=== PATIENT | female | born 1965 | race Caucasian/White ===

== ENCOUNTER 2018-10-25 09:36 | Emergency (ER) | payer MEDICAID ==
[~2018-10-25] VITALS: Ht 162.6 cm; Wt 98.0 kg
[2018-10-25] MEDS ORDERED: KETOROLAC 60MG/2ML VIAL IM ONE (11:30)
[2018-10-25 14:05] VITALS: BP 145/82
== END 2018-10-25 14:10 | disposition home or self-care (01) ==
LOC: ER 09:49
DX: S82.832A Other fracture of upper and lower end of left fibula, initial encounter for closed fracture (principal); M25.572 Pain in left ankle and joints of left foot; W01.198A Fall on same level from slipping, tripping and stumbling with subsequent striking against other object, initial encounter; Y93.89 Activity, other specified; Y92.098 Other place in other non-institutional residence as the place of occurrence of the external cause; I10 Essential (primary) hypertension
CPT/HCPCS: 29505; 72170; 73560; 73600; 96372; 99283; J1885

== ENCOUNTER 2025-05-29 16:14 | Emergency (ER) | payer MEDICAID ==
[~2025-05-29] VITALS: Ht 162.6 cm; Wt 141.0 kg
[2025-05-29 16:26] VITALS: TEMP 36.9; O2SAT 96
[2025-05-29] MEDS: CLONIDINE 0.1MG TABLET PO ONE (20:39)
[2025-05-29 20:42] LABS: BASOPHILS % 1.0 % (0.0-2.0); EOSINOPHILS % 1.7 % (0.0-5.0); HEMATOCRIT. 39.0 % (36.0-48.0); HEMOGLOBIN. 12.5 g/dL (12.0-16.0); LYMPHOCYTES % 29.4 % (20.0-50.0); MEAN PLATELET VOLUME 7.9 fl (7.4-10.4); MONOCYTES % 5.0 % (2.0-8.0); NEUTROPHILS % 62.9 % (40.0-76.0); PLATELET 311 x1000/uL (130-400); RED BLOOD CELL COUNT 4.54 mill/uL (4.2-5.4); RED CELL DISTRIBUTION WIDTH 16.0 % (11.6-14.6)
[2025-05-29 20:55] LABS: CREATININE 0.9 mg/dL (0.6-1.0); UREA NITROGEN BLOOD 8 mg/dL (9-23)
[2025-05-29 21:15] VITALS: BP 172/98; PULSE 102; RESP 18; O2SAT 99
== END 2025-05-29 21:18 | disposition home or self-care (01) ==
LOC: ER 16:14
DX: H53.2 Diplopia (principal); E78.00 Pure hypercholesterolemia, unspecified; I10 Essential (primary) hypertension; Z90.49 Acquired absence of other specified parts of digestive tract
CPT/HCPCS: 36415; 80048; 85025; 99284